=== PATIENT | male | born 1950 | race Caucasian/White ===

== ENCOUNTER 2017-02-07 13:37 | Inpatient (IN) ==
[2017-02-07 14:22] LABS: Basophils % 0.3 % (0.0-0.8); Eosinophils # 0.2 10*3/uL (0.0-0.87); Eosinophils % 1.7 % (0.00-10.9); Hematocrit 47.5 VOL% (42.0-52.0); Hemoglobin 16.6 GM/DL (14.0-18.0); Immature Granulocytes % 0.4 %; Immature Granulocytes Absolute 0.05 #; Lymphocytes # 2.4 10*3/uL (1.4-4.0); Lymphocytes % 17.2 % (21.2-54.2); Mean Corpuscular HGB Conc 34.9 GM/DL (32-36); Mean Corpuscular Hemoglobin 31 PG (27-34); Mean Corpuscular Volume 87.8 FL (87-102); Mean Platelet Volume 10.5 FL (9.6-12.0); Monocytes # 1.6 10*3/uL (0.11-0.8); Monocytes % 11.5 % (1.7-12.7); Neutrophils # 9.5 10*3/uL (1.4-7.4); Neutrophils % 68.9 % (38.7-73.9); Platelet Count 277 T/CUMM (130-400); Red Blood Count 5.41 MC/CUMM (3.8-5.5); Red Cell Distribution Width 12.5 % (9.3-17.3); White Blood Count 13.8 T/CUMM (4-12)
[2017-02-07 14:27] LABS: Apearance,Urine CLEAR (Clear); Bilirubin,Urine Negative (Negative); Blood, Urine Negative (Negative); Glucose,Urine (UA) Negative (Negative); Ketones,Urine Negative (Negative); Nitrite,Urine Negative (Negative); Protein,Urine Negative; RBC,Urine <1 /HPF (0-4); Squamous Epithelial Cell,Urine Occasional /HPF (0-10); Urine Color Yellow (Yellow); Urine Specific Gravity 1.008 (1.001-1.035); Urine Urobilinogen < 2.0 EU/DL (0.2-1.0); WBC,Urine 1 /HPF (0-6)
--- NOTE | 2017-02-07 14:43 | XRay Report ---
XR abdomen 2V Indication: Lower abdominal pain. Comparison: None. Technique: Flat and erect images of the abdomen were performed. Findings: Lung bases are clear. No organomegaly suggested. The bowel gas pattern demonstrates no significant abnormality. Bony structures as well as soft tissues demonstrate no evidence of significant pathology. Surgical absence of the gallbladder is demonstrated. Multilevel lumbar fusion is demonstrated laminectomy defects are present at L4, possibly L5. Hollow rounded density projects in the mid left abdomen under the left kidney and may reflect gonadal vein phlebolith. Impression: 1. No active process is suggested within the abdomen or pelvis. 02/07/2017 2:38 PM PROCEDURE INTERPRETED AT [facility] DEPARTMENT OF RADIOLOGY Final Report Signed by: Dr. Shade Stephens
[2017-02-07 14:45] LABS: Albumin 3.9 G/DL (3.4-5.0); Bilirubin,Total 0.8 MG/DL (0.2-1.0); Calcium 9.4 MG/DL (8.5-10.1); Potassium 4.7 MMOL/L (3.5-5.1); Total Protein 7.6 G/DL (6.4-8.3)
[2017-02-07] MEDS ORDERED: KETOROLAC 30 MG/1 ML VIAL IV STA (15:00)
[2017-02-07] MEDS ORDERED: SODIUM CHLORIDE 0.9% 1,000 ML IV STA (15:00)
[2017-02-07] MEDS ORDERED: KETOROLAC 30 MG/1 ML VIAL ONE (15:18)
--- NOTE | 2017-02-07 15:37 | Emergency Department Note ---
IEkaterina Brittany, am scribing for, and in the presence of, Marce Gillespie DO 15: 12. IJose Miguel Debra, DO, personally performed the services described in this documentation, ascribed by Marlene Tobar in my presence, and it is both accurate and complete [id number] . Arrival - Arrival Chief Complaint: Abdominal / Flank Pain Stated Complaint: severe pain on left side ED Nursing Triage Note: PATIENT TO TRIAGE WITH C/O PAIN TO LOWER LEFT ABD. PATIENT STATES HIS LAST BM WAS YESTERDAY AND IT WAS NOT A LOT. HE STATES HE HAS BEEN DOING A LOT OF WORKING OUTSIDE. Mode of Arrival: Ambulatory Limitations: No Limitations Source: Patient Time Seen by Provider: 02/07/17 14:42 - History of Present Illness HPI Narrative: This is a 66 y/o white male,who presents to the ED with c/o abdominal pain which started yesterday. He localizes the pain to the LLQ and moves down into the left groin area. He reports mild nausea but denies any vomiting. He states last night he had a fever. He states he was working outside a lot yesterday but he states he drinks sweet tea, water and Gatorade. Pt has no other complaints/ pain in the ED at this time. Pt has a PMhx of HTN and diverticulitis. Pt denies a surgical hx. Pt has a family medical Hx of cancer, heart disease, stroke, and HTN. Pt denies a social Hx. Onset (ago): day(s) (Started yesterday) Consistency: constant Severity: moderate Allergies/Adverse Reactions: Allergies Allergy/AdvReac Type Severity Reaction Status Date / Time metronidazole [From Flagyl] Allergy ITCHING Verified 02/07/17 13:47 sulfamethoxazole Allergy HIVES Verified 02/07/17 13:47 [From Bactrim] trimethoprim [From Bactrim] Allergy HIVES Verified 02/07/17 13:47 Home Medications: Home Medications Medication Instructions Recorded Confirmed Type Aspirin EC Tab 81 mg PO QAM 02/07/17 02/07/17 History Levothyroxine Sodium 125 mcg PO QAM 02/07/17 02/07/17 History Lisinopril [Lisinopril] 40 mg PO QAM 02/07/17 02/07/17 History Meloxicam [Meloxicam] 7.5 mg PO QAM 02/07/17 02/07/17 History [place]-3/Dha/Epa/Fish Oil [Fish Oil 1 each PO QAM 02/07/17 02/07/17 History 1,000 mg Softgel] Review of System - Review of System 12 point system: reviewed and no additional remarkable complaints except as stated - Review of System Constitutional: Present: fever Gastrointestinal: Present: abdominal pain, nausea. Absent: vomiting Medical,Surgical,& Family Hx - Medical History Cardio: History of: Hypertension Gastrointestinal: History of: Diverticulitis/ Diverticulosis - Family History Family History: Reports;: Family Cancer, Family Heart Disease, Family Hypertension, Family Stroke - Social History Smoking Status: Never smoker Frequency of Alcohol Use: None Type of Drug Use: None Exam Vital Signs: Vital Signs Temperature 97.7 F 02/07/17 14:35 Pulse Rate 81 02/07/17 15:50 Respiratory Rate 16 02/07/17 15:50 Blood Pressure 153/93 02/07/17 15:50 O2 Sat by Pulse Oximetry 100 02/07/17 15:50 - General General appearance: alert, in no apparent distress - Head Head exam: Present: atraumatic, normocephalic, normal inspection - Eye Eye exam: Present: normal appearance, PERRL, EOMI. Absent: scleral icterus, conjunctival injection, nystagmus, miosis, mydriasis, periorbital swelling, periorbital tenderness - ENT ENT exam: Present: normal exam, normal oropharynx, mucous membranes moist, TM's normal bilaterally, normal external ear exam - Neck Neck exam: Present: normal inspection, full ROM, trachea midline. Absent: tenderness, meningismus, lymphadenopathy, thyromegaly - Chest Chest inspection: Present: normal inspection, symmetric chest wall rise. Absent : tenderness, rash, abscess - Respiratory Respiratory exam: Present: normal lung sounds bilaterally. Absent: prolonged expiratory phase, rales, respiratory distress, rhonchi, stridor, wheezes - Cardiovascular Cardiovascular exam: Present: regular rate, normal rhythm, normal heart sounds. Absent: murmur, rubs, gallop, clicks, JVD - Abdominal Exam Abdominal exam: Present: soft, tenderness (LLQ tenderness), normal bowel sounds. Absent: distention, guarding, rebound, rigidity - Rectal Exam Rectal exam: Present: deferred - Extremities Exam Extremities exam: Present: normal inspection, full ROM, normal capillary refill. Absent: tenderness, pedal edema, joint swelling, calf tenderness - Back Exam Back exam: Present: normal inspection, full ROM. Absent: tenderness, muscle spasm, rashes - Neurological Exam Neurological exam: Present: alert, oriented X3, CN II-XII intact. Absent: motor sensory deficit - Psychiatric Psychiatric exam: Present: normal affect, normal mood, manic. Absent: depressed , agitated, anxious, flat affect - Skin Skin exam: Present: warm, dry, intact, normal color. Absent: rash, cyanosis, diaphoresis, erythema, pallor, mottled Results - Labs CBC & BMP: 02/07/17 14:06 02/07/17 14:06 Lab Results: I have reviewed the patients labs Labs: Laboratory Tests 02/07/17 02/07/17 02/07/17 14:06 14:06 14:06 WBC 13.8 H RBC 5.41 Hgb 16.6 Hct 47.5 MCV 87.8 MCH 31 MCHC 34.9 RDW 12.5 Plt Count 277 MPV 10.5 Neut % (Auto) 68.9 Lymph % (Auto) 17.2 L [place] % (Auto) 11.5 Eos % (Auto) 1.7 Baso % (Auto) 0.3 Neut # (Auto) 9.5 H Lymph # (Auto) 2.4 [place] # (Auto) 1.6 H Eos # (Auto) 0.2 Baso # (Auto) 0.0 Immature Gran % 0.4 Nucleated RBC % 0.0 Immature Gran # 0.05 Nucleated RBCs # 0.00 Immature Plt Fraction 0.0 Sodium 136 Potassium 4.7 Chloride 101 Carbon Dioxide 30 Anion Gap 9.7 BUN 17 Creatinine 1.10 GFR Calculation 82 BUN/Creatinine Ratio 15.00 Glucose 100 Calculated Osmolality 273.0 Calcium 9.4 Total Bilirubin 0.80 AST 16 ALT 34 Alkaline Phosphatase 70 Total Protein 7.6 Albumin 3.9 Globulin 3.7 H Albumin/Globulin Ratio 1.0 L Urine Color Yellow Urine Appearance Clear Urine pH 5.0 Ur Specific [place] 1.008 Urine Protein Negative Urine Glucose (UA) Negative Urine Ketones Negative Urine Blood Negative Urine Nitrate Negative Urine Bilirubin Negative Urine Urobilinogen < 2.0 H Urine Leukocytes Negative Urine RBC <1 Urine WBC 1 Ur Squamous Epith Cells Occasional Ur Culture Indicated? Not indicated - Diagnostic Findings Procedure: Abdominal x-ray: report reviewed by me (Nothing acute. ) Disposition Clinical Impression: Diverticulitis Case discussed with: patient, patient's family Disposition: Still a Patient Condition: Stable Time of Disposition: 16:13
[2017-02-07] MEDS ORDERED: MEROPENEM 1,000 MG in SODIUM CHLORIDE 0.9% 100 ML IV STA (16:05)
[2017-02-07] MEDS ORDERED: HYDROmorphone 2 MG/1 ML VIAL IV STA (16:06)
[2017-02-07] MEDS ORDERED: ONDANSETRON 4 MG/2 ML VIAL IV STA (16:06)
[2017-02-07] MEDS ORDERED: MEROPENEM 1,000 MG VIAL IV ONE (16:09)
[2017-02-07] MEDS ORDERED: ONDANSETRON 4 MG/2 ML VIAL ONE (16:10)
[2017-02-07] MEDS ORDERED: HYDROmorphone 2 MG/1 ML VIAL ONE (16:10)
--- NOTE | 2017-02-07 16:11 | CT Report ---
CT abdomen pelvis w con Indication: Left-sided abdominal pain. History of diverticulitis. Comparison: None. Technique: CT of the abdomen and pelvis was performed following administration of intravenous contrast. The CT examination was performed using one or more of the following dose reduction techniques: Automatic exposure control, adjustment of the mA and kV according to patient size, or iterative reconstruction techniques. Findings: Lower chest: No acute findings are noted within the lower chest. Dependent atelectatic changes are present bilaterally. Moderately dense coronary artery calcifications are present. Liver: Liver demonstrates a subcentimeter hypodense lesion within the lateral segment left hepatic lobe favored to represent small cyst. A larger more posterior hypodense lesion within the lateral segment of the left hepatic lobe image #41 measures approximately 2 cm in greatest dimension and additionally is favored to represent cyst. Liver is otherwise unremarkable. Gallbladder: Gallbladder surgically absent. Spleen: Spleen demonstrates no significant abnormality. Pancreas: Pancreas demonstrates no significant abnormality. Adrenal glands: The adrenal glands demonstrate no significant abnormalities. Kidneys: Posterior cortical cyst right kidney image 68 measures up to 4.4 cm greatest dimension. The kidneys otherwise are unremarkable. Aorta: The aorta demonstrates no acute findings. Inferior vena cava: Inferior vena cava is normal in appearance. Lymph nodes: No adenopathy is noted within the abdomen or pelvis. Stomach and bowel: Stomach, duodenum, and small bowel are unremarkable. The appendix is not clearly identified and may be surgically absent. Multiple diverticula are demonstrated along the descending and sigmoid colon. The proximal sigmoid colon demonstrates a short segment in which there are inflammatory changes manifest by periserosal fat stranding and some wall thickening of the large bowel. This lies proximal to the surgical anastomosis within the mid sigmoid colon. Large bowel is otherwise unremarkable. Intrapelvic contents: No acute findings are noted within the pelvis. Osseous structures: Prior lumbar fusion and bilateral laminectomy defects are noted at L3, L4, L5. Soft tissues and musculature: Soft tissues and musculature of the body wall demonstrate no acute findings. Impression: 1. Findings compatible with acute sigmoid diverticulitis. No discrete evidence of perforation or intra-abdominal/intrapelvic abscess appears to be associated. 2. Nonacute findings are present as detailed above. 02/07/2017 4:04 PM PROCEDURE INTERPRETED AT [facility] DEPARTMENT OF RADIOLOGY Final Report Signed by: Dr. Shade Stephens
[2017-02-07] MEDS ORDERED: MAGNESIUM SULF RIDER 2 GM in PREMIX 1 EACH IV PRN (16:27)
[2017-02-07] MEDS ORDERED: ONDANSETRON 4 MG/2 ML VIAL IV PRN (16:27)
[2017-02-07] MEDS ORDERED: MAGNESIUM SULF RIDER 4 GM in PREMIX 1 EACH IV PRN (16:27)
[2017-02-07] MEDS ORDERED: POTASSIUM CHLORIDE RIDER 10 MEQ in PREMIX 1 EACH IV PRN (16:27)
[2017-02-07] MEDS ORDERED: CIPROFLOXACIN INJ 400 MG in PREMIX 1 EACH IV SCH (16:30)
--- NOTE | 2017-02-07 16:38 | Hospitalist History & Physical ---
Assessment and Plan (1) Diverticulitis Status: Acute Assessment and plan: CT abdomen and pelvis findings reported acute sigmoid diverticulitis however, no evidence of perforation or intra-abdominal or intrapelvic abscesses are noted. We will start empiric antibiotic coverage, gently rehydrate, promote bowel rest, start protein pump inhibitors, and pain management. We will consult gastroenterology to evaluate and assist during the clinical encounter. Current Visit: Yes Qualifiers: Diverticulitis site: unspecified part of intestinal tract Diverticulitis complication: without perforation or abscess (2) Hypertension Status: Acute Assessment and plan: Home medications have been reviewed and restarted. We will monitor blood pressure closely Current Visit: Yes History of Present Illness Chief complaint: Left-sided abdominal and flank pain History of present illness: This is a pleasant 66-year-old male that presented to the ED at [facility] this afternoon for the evaluation of left-sided abdominal and flank pain. The patient has a medical history significant for hypertension, hypothyroidism, arthritis, and diverticulitis. The patient reported no significant surgical history at the time of ED encounter. The patient reports the onset of symptoms on yesterday. He reported that he had been working a lot outside on yesterday however he remained hydrated. In addition, the patient reported that he had fever last night and that the pain is primarily located in the left lower quadrant however it extends down into the left groin. The patient denied any nausea, vomiting, hematochezia, or melena at the time of ED presentation. He reported that the pain was very severe on last night however it improved slightly today. It became worrisome prompting him to present to the ED for further evaluation. The patient was assessed at the time of ED presentation. The patient was noted to be mildly hypertensive with the blood pressure noted at 153/93. Labs were obtained; complete blood count reported white blood cell count 13.8, hemoglobin 16.6, hematocrit 47.5, and platelet count 277. Comprehensive metabolic profile reported sodium at 136, potassium 4.6, chloride 101, carbon dioxide 30, BUN 17, creatinine 1.10, glucose 100, calcium 9.4, AST 16, ALT 34, albumin 3.9. Urinalysis was essentially unremarkable. Abdominal x-ray was unremarkable for any acute intra-abdominal processes. CT abdomen pelvis reported findings compatible with acute sigmoid diverticulitis however, no discrete evidence of perforation or intra-abdominal/intrapelvic abscess appears to be associated. After brief discussion with both Dr. Jose Miguel Sandoval, the patient will be admitted to the hospitalist services for continuation of care. A gastroenterology consultation has been requested to evaluate and assist during the clinical encounter. Home medications have been reviewed and reconciled. CODE STATUS discussed; patient is a FULL CODE. Home Medications Medication Instructions Recorded Confirmed Type Aspirin EC Tab 81 mg PO QAM 02/07/17 02/07/17 History Levothyroxine Sodium 125 mcg PO QAM 02/07/17 02/07/17 History Lisinopril [Lisinopril] 40 mg PO QAM 02/07/17 02/07/17 History Meloxicam [Meloxicam] 7.5 mg PO QAM 02/07/17 02/07/17 History [place]-3/Dha/Epa/Fish Oil [Fish Oil 1 each PO QAM 02/07/17 02/07/17 History 1,000 mg Softgel] Allergies Allergy/AdvReac Type Severity Reaction Status Date / Time metronidazole [From Flagyl] Allergy ITCHING Verified 02/07/17 13:47 sulfamethoxazole Allergy HIVES Verified 02/07/17 13:47 [From Bactrim] trimethoprim [From Bactrim] Allergy HIVES Verified 02/07/17 13:47 Medical,Surgical,& Family Hx - Medical History Cardio: History of: Hypertension Gastrointestinal: History of: Diverticulitis/ Diverticulosis - Family History Family History: Reports;: Family Cancer, Family Heart Disease, Family Hypertension, Family Stroke - Social History Smoking Status: Never smoker Frequency of Alcohol Use: None Type of Drug Use: None 12 point system: reviewed and no additional remarkable complaints except as stated Exam - Constitutional Vitals: Period Temp Pulse Resp BP Sys/Graf Pulse Ox Last 24 Hr 97.7 F-97.7 F 81-100 16-18 137-162/86-112 95-100 General appearance: normal weight, no acute distress - Head Head exam: Present: normal inspection, normocephalic, atraumatic - Eye Eye exam: Present: EOMI. Absent: conjunctival injection Pupils: Present: ALEX, normal accommodation - ENT ENT exam: Present: normal exam, normal external ear exam, normal oropharynx - Neck Neck exam: Present: normal inspection. Absent: lymphadenopathy, meningismus, thyromegaly - Respiratory Respiratory exam: Present: clear to auscultation bilaterally. Absent: rales, rhonchi, stridor, wheezes - Cardiovascular Cardiovascular exam: Present: regular rate and rhythm. Absent: carotid bruit, diastolic murmur, gallop, JVD, rubs, systolic murmur - GI/Abdominal GI/Abdominal exam: Present: normal bowel sounds, firm, tenderness (Left upper quadrant). Absent: distended, guarding - Extremities Exam Extremities exam: Present: normal inspection, normal capillary refill, full ROM. Absent: edema - Back Exam Back exam: Present: normal inspection - Neurological Exam Neurological exam: Present: alert, oriented X3, CN II-XII intact - Psychiatric Psychiatric exam: Present: normal affect, normal mood - Skin Skin exam: Present: normal color, warm, dry Results - Labs CBC & BMP: 02/07/17 14:06 02/07/17 14:06 Lab Results: I have reviewed the past 24 hour labs
[2017-02-07] MEDS ORDERED: metroNIDAZOLE INJ 500 MG in PREMIX 1 EACH IV SCH (17:00)
[2017-02-07] MEDS: SODIUM CHLORIDE 0.9% 1,000 ML IV SCH (17:26)
[2017-02-07] MEDS: PIPERACILLIN/TAZOBACTAM 3,375 MG in SODIUM CHLORIDE 0.9% 100 ML IV SCH (17:26)
[2017-02-07] MEDS ORDERED: MELATONIN 3 MG TABLET PO PRN (19:44)
[2017-02-08] MEDS: PIPERACILLIN/TAZOBACTAM 3,375 MG in SODIUM CHLORIDE 0.9% 100 ML IV SCH ×3 (01:26→18:16)
[2017-02-08] MEDS: SODIUM CHLORIDE 0.9% 1,000 ML IV SCH ×3 (01:27→17:55)
--- NOTE | 2017-02-08 07:01 | Gastrointestinal Consult Note ---
History of Present Illness Chief complaint: Patient is here with an episode of diverticulitis, leukocytosis History of present illness: Mr. Aleman is a 66 year old male Home Medications Medication Instructions Recorded Confirmed Type Aspirin EC Tab 81 mg PO QAM 02/07/17 02/07/17 History Levothyroxine Sodium 125 mcg PO QAM 02/07/17 02/07/17 History Lisinopril [Lisinopril] 40 mg PO QAM 02/07/17 02/07/17 History Meloxicam [Meloxicam] 7.5 mg PO QAM 02/07/17 02/07/17 History [place]-3/Dha/Epa/Fish Oil [Fish Oil 1 each PO QAM 02/07/17 02/07/17 History 1,000 mg Softgel] Allergies Allergy/AdvReac Type Severity Reaction Status Date / Time metronidazole [From Flagyl] Allergy ITCHING Verified 02/07/17 18:01 sulfamethoxazole Allergy HIVES Verified 02/07/17 18:01 [From Bactrim] trimethoprim [From Bactrim] Allergy HIVES Verified 02/07/17 18:01 Medical,Surgical,& Family Hx - Medical History Cardio: History of: Hypertension Gastrointestinal: History of: Diverticulitis/ Diverticulosis - Surgical History Abdominal Surgeries: Surgical HX of: Appendectomy (at 13 yrs old) - Family History Family History: Reports;: Family Cancer (mom and dad), Family Heart Disease ( mom and dad), Family Hypertension, Family Stroke (mom) - Social History Smoking Status: Never smoker Frequency of Alcohol Use: None Type of Drug Use: None Exam - Constitutional Vitals: Period Temp Pulse Resp BP Sys/Graf Pulse Ox Last 24 Hr 97 F-98.3 F 61-100 15-18 115-162/60-112 93-100 Results - Labs CBC & BMP: 02/07/17 14:06 02/07/17 14:06
[2017-02-08 08:15] LABS: Basophils # 0.1 10*3/uL (0.0-0.2); Basophils % 0.6 % (0.0-0.8); Eosinophils # 0.3 10*3/uL (0.0-0.87); Eosinophils % 3.5 % (0.00-10.9); Hematocrit 41.3 VOL% (42.0-52.0); Hemoglobin 14.1 GM/DL (14.0-18.0); Immature Granulocytes % 0.3 %; Immature Granulocytes Absolute 0.03 #; Lymphocytes # 2.1 10*3/uL (1.4-4.0); Lymphocytes % 23.9 % (21.2-54.2); Mean Corpuscular HGB Conc 34.1 GM/DL (32-36); Mean Corpuscular Hemoglobin 30 PG (27-34); Mean Corpuscular Volume 88.6 FL (87-102); Mean Platelet Volume 10.5 FL (9.6-12.0); Monocytes # 0.8 10*3/uL (0.11-0.8); Monocytes % 9.4 % (1.7-12.7); Neutrophils # 5.6 10*3/uL (1.4-7.4); Neutrophils % 62.3 % (38.7-73.9); Platelet Count 241 T/CUMM (130-400); Red Blood Count 4.66 MC/CUMM (3.8-5.5); Red Cell Distribution Width 12.7 % (9.3-17.3); White Blood Count 8.9 T/CUMM (4-12)
[2017-02-08] MEDS: LEVOTHYROXINE 125 MCG TABLET PO SCH (08:24)
[2017-02-08] MEDS: LISINOPRIL 20 MG TABLET PO SCH (08:24)
[2017-02-08] MEDS: PANTOPRAZOLE 40 MG VIAL IV SCH (08:25)
[2017-02-08] MEDS: HYDROmorphone 2 MG/1 ML VIAL IV PRN ×2 (08:25→18:23)
[2017-02-08 08:59] LABS: Bilirubin,Total 0.8 MG/DL (0.2-1.0); Calcium 7.9 MG/DL (8.5-10.1); Magnesium 2.5 MG/DL (1.8-2.4); Osmolality,Calculated 277.5 MOS/KG (273-304); Potassium 4.9 MMOL/L (3.5-5.1); Total Protein 5.9 G/DL (6.4-8.3)
--- NOTE | 2017-02-08 10:11 | Hospitalist Progress Note ---
Assessment and Plan (1) Diverticulitis Status: Acute Assessment and plan: 1)diverticulitis- on ZOsyn, continue. continue clears today and consider advancing as his appetite improves. Dr Harley ot see today. 2)HTN- controlled Current Visit: Yes Qualifiers: Diverticulitis site: unspecified part of intestinal tract Diverticulitis complication: without perforation or abscess (2) Hypertension Status: Acute Current Visit: Yes Hospitalist: Subjective Interval history: Mr Aleman is feeling better except for the LLQ pain that radiates to his groin. His nausea resolved. He is tolerating clears. He has had diverticulitis in the past, with surgery to remove 12 in of colon in 2009 for recurrent diverticulitis and an isolated episode of diverticulitis in 2013. He had cscope in 2013 and was told he would not need it again for 10 years. He has not established with doctors in [place] since his move from [place]. Exam - Constitutional Vitals: Period Temp Pulse Resp BP Sys/Graf Pulse Ox Last 24 Hr 97 F-98.3 F 61-100 15-18 115-162/60-112 93-100 General appearance: no acute distress, over weight - Head Head exam: Present: normocephalic, atraumatic - Eye Eye exam: Present: EOMI. Absent: scleral icterus - Respiratory Respiratory exam: Present: clear to auscultation bilaterally - Cardiovascular Cardiovascular exam: Present: regular rate and rhythm - GI/Abdominal GI/Abdominal exam: Present: normal bowel sounds, tenderness (LLQ no mass or guarding or rebound, but very tender), soft - Extremities Exam Extremities exam: Absent: edema - Neurological Exam Neurological exam: Present: alert, oriented X3 - Psychiatric Psychiatric exam: Present: normal affect, normal mood - Skin Skin exam: Present: warm, dry. Absent: rash Results - Labs CBC & BMP: 02/08/17 07:53 02/08/17 07:53 Lab Results: I have reviewed the past 24 hour labs
--- NOTE | 2017-02-08 16:23 | Gastrointestinal Consult Note ---
Assessment and Plan (1) Sigmoid diverticulitis Status: Acute Assessment and plan: This patient has an episode of diverticulitis discovered on CT scanning. He is a history of colon resection due to this condition in the past. He states that approximately 14 inches of his colon removed previously. I am surprised he would not do a left hemicolectomy given his prior history of episodes. Prior evaluation of the colon has taken place 2 and apparently, I believe, hyperplastic polyps removed that carry very little malignant risk. He was told that he does not need repeat colonoscopy for 10 years. I would like to get a copy of these records and verify these findings. Current Visit: Yes (2) Personal history of colonic polyps Status: Acute Assessment and plan: As mentioned above the patient has had a prior colonoscopy 2 but her last colonoscopy was negative and he was told to return again in 10 years. I would like to get the old records from Dr. Suzanna Lai, in [facility]. Hopefully these will be available when I have to see him as an outpatient in the future. Current Visit: Yes (3) History of colon resection Status: Acute Assessment and plan: The patient did have a segment of colon removed because of recurrent diverticulitis. We need to keep an eye on him to see if this is going to be a trend that continues. Current Visit: Yes (4) Abnormal CT scan, pelvis Status: Acute Current Visit: Yes (5) Diverticulitis Status: Acute Assessment and plan: This patient has an elevated white blood cell count and clinical presentation similar to what has been seen in the past. Antibiotics have been started. The patient is being observed for improvement in his white blood cell count and clinical examination prior to being switched over to oral antibiotics and possibly sent home. Given the fact that Zosyn is being used to control symptoms would suggest use of Augmentin 875 mg twice daily, given his current improvement he might be ready to be discharged tomorrow. Current Visit: Yes Qualifiers: Diverticulitis site: unspecified part of intestinal tract Diverticulitis complication: without perforation or abscess History of Present Illness History of present illness: Mr. Aleman is a 66 year old male who has a history of previous colonoscopy done 7 years ago in 2009 in [facility] by a jewelry maker named Suzanna Sherwood MD--she discovered polyps at that time but also diverticulosis. Patient has had recurrent episodes of diverticulitis 1 of which required resection of his sigmoid 14 inches in 2009. The patient subsequently had another colonoscopy done in 2013 which did not demonstrate any further polyps, he was told at that point that he did not need to repeat the colonoscopy for [address] Sherwood (next in 2023). The patient is locating now to the [place] region and it started to develop another episode of diverticulitis starting on 02/06/17 at about 5 PM in the evening.--the pain was initially a 7 out of 10 in intensity , this is dropped back to about a 3 out of 10 by the patient does not try to move too much. There was fevers but no chills the patient is having nausea. He remembers eating some tomato seeds but does not recall any popcorn seeds or nuts of other types. He usually tries to get some fiber in his diet. He was admitted to the hospitalist yesterday and has been placed on Zosyn. White blood cell count has improved from initial 13.8 down to 8.9 at this point. He is a little bit hungry and would like a low residue diet. He was having some diarrhea initially but this has slacked off. The patient does feel constipation in addition during these episodes and had tried an enema at home. He is taking a few Dulcolax to try and relieve the sensation in his left lower abdomen as well, unsuccessfully. The patient works for [employer]. Home Medications Medication Instructions Recorded Confirmed Type Aspirin EC Tab 81 mg PO QAM 02/07/17 02/07/17 History Levothyroxine Sodium 125 mcg PO QAM 02/07/17 02/07/17 History Lisinopril [Lisinopril] 40 mg PO QAM 02/07/17 02/07/17 History Meloxicam [Meloxicam] 7.5 mg PO QAM 02/07/17 02/07/17 History [place]-3/Dha/Epa/Fish Oil [Fish Oil 1 each PO QAM 02/07/17 02/07/17 History 1,000 mg Softgel] Allergies Allergy/AdvReac Type Severity Reaction Status Date / Time metronidazole [From Flagyl] Allergy ITCHING Verified 02/07/17 18:01 sulfamethoxazole Allergy HIVES Verified 02/07/17 18:01 [From Bactrim] trimethoprim [From Bactrim] Allergy HIVES Verified 02/07/17 18:01 Medical,Surgical,& Family Hx - Medical History Cardio: History of: Hypertension Gastrointestinal: History of: Diverticulitis/ Diverticulosis - Surgical History Abdominal Surgeries: Surgical HX of: Appendectomy (at 13 yrs old) - Family History Family History: Reports;: Family Cancer (mom and dad), Family Heart Disease ( mom and dad), Family Hypertension, Family Stroke (mom) - Social History Smoking Status: Never smoker Frequency of Alcohol Use: None Type of Drug Use: None Review of systems: Constitutional: Denies fever, chills, and vomiting, he is however positive for nausea Eyes: Denies dry eyes, and scleral icterus HENT: Denies headaches Cardiovascular: Denies acute chest pain and claudication Respiratory: Denies shortness of breath, wheezing, and difficulty breathing, denies cough Gastrointestinal: As noted in the HPI Genitourinary: Denies dysuria and hematuria Neurologic: Denies vision loss, and loss of sensation Musculoskeletal: Denies joint swelling, joint stiffness, and muscular weakness Psychiatric: Denies depression and randy symptoms Heme-Lymph: Denies easy bruising, lymph node enlargement or tenderness, night sweats, excessive bleeding Allergies-immunologic: Denies pruritus and rhinorrhea Exam - Constitutional Vitals: Period Temp Pulse Resp BP Sys/Graf Pulse Ox Last 24 Hr 97 F-98.3 F 55-82 15-18 115-146/60-92 93-100 Exam: Constitutional: Well-developed, well-nourished, alert, and in no acute distress Head and face: Head: Normocephalic atraumatic Eyes: Conjunctiva without injection, no gross scleral icterus, pupils equal and round bilaterally Ears: Intact to conversation in both ears Nose: External appearance is normal, nares patent Mouth: Oral mucous membranes moist without erythema dentition noted to be without erosion Neck: Normal appearance, no masses or tenderness, trachea midline Thyroid: Gland midline and appropriate size for age Respiratory: Normal respiratory effort, clear to auscultation without wheezes, rhonchi or rales Cardiovascular: Regular rate and rhythm, normal S1, S2, the exam is without rubs, murmurs or gallops. Gastrointestinal: Moderately tender in the left lower quadrant to deep palpation, normal active bowel sounds, tone normal without rigidity or guarding , no masses present, no hepatomegaly, no spleen tip felt. No rectal exam obtained. Lymphatic: Neck without adenopathy, axilla without lymphadenopathy present Musculoskeletal: Right and left lower extremities without evidence of edema Skin and subcutaneous tissue: No rashes or ulcerations noted, normal skin turgor, digits and nails without clubbing/cyanosis/deformities. Neurologic: The patient is grossly oriented to person place and time, cranial nerves show tongue movements are normal with normal tongue extrusion midline, light touch sensation is intact. Psychiatric: No hallucinations or delusions are present, does not appear depressed Results - Labs CBC & BMP: 02/08/17 07:53 02/08/17 07:53
[2017-02-09] MEDS: SODIUM CHLORIDE 0.9% 1,000 ML IV SCH (01:29)
[2017-02-09] MEDS: PIPERACILLIN/TAZOBACTAM 3,375 MG in SODIUM CHLORIDE 0.9% 100 ML IV SCH (01:30)
--- NOTE | 2017-02-09 06:54 | Gastrointestinal Progress Note ---
Assessment and Plan (1) Sigmoid diverticulitis Status: Acute Assessment and plan: This patient has an episode of diverticulitis discovered on CT scanning. He is a history of colon resection due to this condition in the past. He states that approximately 14 inches of his colon removed previously. I am surprised he did not get a left hemicolectomy given his prior history of episodes. Prior evaluation of the colon has taken place 2 and apparently, I believe, hyperplastic polyps removed that carry very little malignant risk. He was told that he does not need repeat colonoscopy for 10 years. I would like to get a copy of these records and verify these findings. 02/09/17--The patient is doing well with pain down to a 3 out of 10 in intensity, anticipate that his white blood cell count today further will come down. In anticipation of this I am going to switch him over from Zosyn to Augmentin 875 mg p.o. twice daily. Would suggest watching him for a day on this medication but he could certainly be discharged this afternoon if he is doing well. He understands a low residue diet and what foods to avoid. It is my understanding that he does not need another colonoscopy for at least until 2019 given his prior history of polyps we are still trying to get old records from his previous client account specialist in [place]. Current Visit: Yes (2) Personal history of colonic polyps Status: Acute Assessment and plan: As mentioned above the patient has had a prior colonoscopy 2 but her last colonoscopy was negative and he was told to return again in 10 years. I would like to get the old records from Dr. Suzanna Lai, in [facility]. Hopefully these will be available when I have to see him as an outpatient in the future. 02/09/17--Await results from [place]. Discharge from hospital today or tomorrow as you see fit. Current Visit: Yes (3) History of colon resection Status: Acute Assessment and plan: The patient did have a segment of colon removed because of recurrent diverticulitis. We need to keep an eye on him to see if this is going to be a trend that continues. 02/09/17--Segmental colectomy done in the sigmoid previously. May need repeated surgery at some point if he continues to have episodes. Current Visit: Yes (4) Abnormal CT scan, pelvis Status: Acute Current Visit: Yes Gastroenterology - PN: Subj Interval history: Feels better, pain now down to a 3 out of 10 in intensity still somewhat tender when pressed upon. He is tolerating a low residue diet well. I am going to try stopping his fluids, and switch him over to oral medications. Exam (Progress Note) - Constitutional Vitals: Period Temp Pulse Resp BP Sys/Graf Pulse Ox Last 24 Hr 97.1 F-98.2 F 55-82 18-18 125-147/72-83 95-97 General appearance: no acute distress - Head Head exam: Present: normocephalic - Eye Eye exam: Present: EOMI - Respiratory Respiratory exam: Present: clear to auscultation bilaterally - GI/Abdominal GI/Abdominal exam: Present: normal bowel sounds, tenderness (Left lower quadrant tenderness to moderate palpation), soft. Absent: rebound - Extremities Exam Extremities exam: Present: normal inspection - Back Exam Back exam: Present: normal inspection - Neurological Exam Neurological exam: Present: alert, oriented X3, CN II-XII intact - Psychiatric Psychiatric exam: Present: normal affect, normal mood - Skin Skin exam: Present: warm Results - Labs CBC & BMP: 02/08/17 07:53 02/08/17 07:53
[2017-02-09] MEDS ORDERED: AMOXICILLIN/CLAV 875 MG TABLET PO SCH (07:00)
[2017-02-09 07:26] LABS: Calcium 8.3 MG/DL (8.5-10.1); Osmolality,Calculated 283.1 MOS/KG (273-304)
[2017-02-09] MEDS: PANTOPRAZOLE 40 MG VIAL IV SCH (08:05)
[2017-02-09] MEDS: LEVOTHYROXINE 125 MCG TABLET PO SCH (08:06)
[2017-02-09] MEDS: LISINOPRIL 20 MG TABLET PO SCH (08:06)
--- NOTE | 2017-02-09 09:35 | Discharge Summary ---
Hospital Course - Hospital Course Hospital Course: Mr Aleman presented with nausea and abdominal pain and had sigmoid diverticulitis. His last cscope was a few years ago and he was told he did not need another for 10 years. He has had colon resection in the past for recurrent diverticulitis. He is feeling good, tolerating regular diet and oral antibiotics. He will be discharged today to [facility] with Dr Harley and [facility] with DR Ely Abdul for primary care. I discussed the discharge plans with DR Harley to coordinate care. He will complete 10 days of oral augmentin. - Time spent with patient Time with patient DS: Greater than 30 minutes (exam, coordination of care, documentation, medicine reconciliation) Diagnosis - Discharge Diagnosis (1) Diverticulitis Status: Resolved (2) Hypertension Status: Chronic Specialty Discharge - Follow Up or Referrals Follow up with: Ely Abdul DO [Physician] - 02/17/17 1:30 pm (before Feb 18 or after mar 11 new patient, diverticulitis) Discharge Plan - Discharge Data Disposition: Disch To Home/Self Care Condition at Discharge: Stable Discharge Diet: advance to your usual diet (per Dr Newsome's instructions) Activity: resume usual activities as tolerated - Discharge Medications New Amoxicillin/Clav Tab [Augmentin Tab] 875 mg PO Q12H #20 tablet Continue Levothyroxine Sodium 125 mcg PO QAM Aspirin EC Tab 81 mg PO QAM Meloxicam 7.5 mg PO QAM [place]-3/Dha/Epa/Fish Oil [Fish Oil 1,000 mg Softgel] 1 each PO QAM Lisinopril 40 mg PO QAM - Follow Up or Referral Follow Up: Ely Abdul DO [Physician] - 02/17/17 1:30 pm (before Feb 18 or after mar 11 new patient, diverticulitis) - Forms/Instructions Instructions: Diverticulitis (DC), Diverticulitis Diet (DC), Diverticulitis Diet (GEN) Exam - Constitutional Vitals: Period Temp Pulse Resp BP Sys/Graf Pulse Ox Last 24 Hr 96.4 F-98.2 F 55-75 18-20 125-160/72-96 96-98 General appearance: no acute distress, over weight - Head Head exam: Present: normocephalic, atraumatic - Eye Eye exam: Present: EOMI. Absent: scleral icterus - Respiratory Respiratory exam: Present: clear to auscultation bilaterally - Cardiovascular Cardiovascular exam: Present: regular rate and rhythm - GI/Abdominal GI/Abdominal exam: Present: normal bowel sounds, soft. Absent: tenderness - Extremities Exam Extremities exam: Absent: edema Discharge Results Labs on day of discharge: Labs from last 24 hours 02/09/17 05:46 Sodium 142 Potassium 5.0 Chloride 107 Carbon Dioxide 32 Anion Gap 8.0 BUN 13 Creatinine 1.10 GFR Calculation 82 BUN/Creatinine Ratio 11.00 Glucose 112 H Calculated Osmolality 283.1 Calcium 8.3 L DS: Provider Date of admission: 02/07/17 16:25 Primary care physician: Nonstaff Physician Attending physician on admission: Dominic Sandoval MD Consults: 02/07/17 16:28 Consult to Physician [CONS] Routine Comment: Consulting Provider: Donte Harley When should Consulting Provider be notified: In am Consult to Specialist Group: Gastroenterology Person Notified: MD aware Discharging clinician: Eugenia Bañuelos MD
[2017-02-09 11:47] VITALS: BP 145/78
== END 2017-02-09 12:52 | disposition home or self-care (01) | DRG 392 ==
LOC: N.ED 13:37 → N.EDINP 16:25 → SUATTDRO 16:25 → N.5E 17:00
PROVIDERS: ADMIT Internal Medicine; ATTEND Internal Medicine

== ENCOUNTER 2017-12-28 19:16 | Inpatient (IN) ==
[2017-12-28 20:08] LABS: Basophils # 0.1 10*3/uL (0.0-0.2); Basophils % 0.3 % (0.0-0.8); Eosinophils # 0.1 10*3/uL (0.0-0.87); Eosinophils % 0.3 % (0.00-10.9); Hematocrit 48.6 VOL% (42.0-52.0); Hemoglobin 16.8 GM/DL (14.0-18.0); Immature Granulocytes % 0.5 %; Immature Granulocytes Absolute 0.08 #; Lymphocytes # 1.4 10*3/uL (1.4-4.0); Lymphocytes % 8.2 % (21.2-54.2); Mean Corpuscular HGB Conc 34.6 GM/DL (32-36); Mean Corpuscular Hemoglobin 30 PG (27-34); Mean Corpuscular Volume 87.6 FL (87-102); Mean Platelet Volume 10.4 FL (9.6-12.0); Monocytes # 1.2 10*3/uL (0.11-0.8); Monocytes % 7.1 % (1.7-12.7); Neutrophils # 14.4 10*3/uL (1.4-7.4); Neutrophils % 83.6 % (38.7-73.9); Platelet Count 292 T/CUMM (130-400); Red Blood Count 5.55 MC/CUMM (3.8-5.5); Red Cell Distribution Width 12.8 % (9.3-17.3); White Blood Count 17.2 T/CUMM (4-12)
[2017-12-28] MEDS ORDERED: SODIUM CHLORIDE 0.9% 1,000 ML IV STA (20:16)
[2017-12-28] MEDS ORDERED: MORPHINE 4 MG/1 ML VIAL IV STA (20:17)
[2017-12-28] MEDS ORDERED: ONDANSETRON 4 MG/2 ML VIAL IV STA (20:17)
[2017-12-28] MEDS ORDERED: KETOROLAC 30 MG/1 ML VIAL IV STA (20:17)
[2017-12-28 20:43] LABS: Bilirubin,Total 0.7 MG/DL (0.2-1.0); Calcium 9.4 MG/DL (8.5-10.1); Osmolality,Calculated 274.1 MOS/KG (273-304); Potassium 4.2 MMOL/L (3.5-5.1); Total Protein 7.9 G/DL (6.4-8.3)
[2017-12-28 20:46] LABS: Apearance,Urine CLEAR (Clear); Bilirubin,Urine Negative (Negative); Blood, Urine Negative (Negative); Glucose,Urine (UA) Negative (Negative); Ketones,Urine Negative (Negative); Mucus,Urine Occasional /LPF (Occasional); Nitrite,Urine Negative (Negative); Protein,Urine Negative; RBC,Urine 1 /HPF (0-4); Squamous Epithelial Cell,Urine Occasional /HPF (0-10); Urine Color Yellow (Yellow); Urine Urobilinogen < 2.0 EU/DL (0.2-1.0); WBC,Urine <1 /HPF (0-6)
[2017-12-28 20:54] LABS: Lactic Acid 1.3 MMOL/L (0.4-2.0)
[2017-12-28] MEDS ORDERED: CEFEPIME 2,000 MG in SODIUM CHLORIDE 0.9% 100 ML IV STA (21:13)
[2017-12-28] MEDS ORDERED: CEFEPIME 2,000 MG VIAL ONE (21:16)
[2017-12-28] MEDS ORDERED: MORPHINE 10 MG/1 ML VIAL IV PRN (22:05)
[2017-12-29] MEDS: DEXTROSE 5% NACL 0.9% 1,000 ML IV SCH ×4 (04:04→21:23)
[2017-12-29 04:56] LABS: Basophils % 0.3 % (0.0-0.8); Eosinophils % 0.3 % (0.00-10.9); Hematocrit 42.7 VOL% (42.0-52.0); Hemoglobin 15.1 GM/DL (14.0-18.0); Immature Granulocytes % 0.3 %; Immature Granulocytes Absolute 0.04 #; Lymphocytes # 1.7 10*3/uL (1.4-4.0); Mean Corpuscular HGB Conc 35.4 GM/DL (32-36); Mean Corpuscular Hemoglobin 31 PG (27-34); Mean Corpuscular Volume 87.3 FL (87-102); Mean Platelet Volume 10.5 FL (9.6-12.0); Monocytes # 0.9 10*3/uL (0.11-0.8); Monocytes % 6.4 % (1.7-12.7); Neutrophils # 11.1 10*3/uL (1.4-7.4); Neutrophils % 80.7 % (38.7-73.9); Platelet Count 228 T/CUMM (130-400); Red Blood Count 4.89 MC/CUMM (3.8-5.5); Red Cell Distribution Width 13.2 % (9.3-17.3); White Blood Count 13.7 T/CUMM (4-12)
[2017-12-29] MEDS: traMADol 50 MG TABLET PO PRN ×3 (05:22→21:31)
[2017-12-29] MEDS: LEVOTHYROXINE 125 MCG TABLET PO SCH (08:21)
[2017-12-29] MEDS: CEFEPIME 2,000 MG in SYRINGE 1 EACH IV SCH ×2 (08:21→14:22)
[2017-12-29] MEDS: ASPIRIN EC 81 MG TABLET PO SCH (10:26)
[2017-12-29] MEDS: PANTOPRAZOLE 40 MG VIAL IV SCH (10:26)
[2017-12-29] MEDS: VANCOMYCIN 50 MG/ML 60 ML/BOTTLE PO SCH ×2 (12:37→17:33)
[2017-12-29] MEDS: CHOLESTYRAMINE 4 GM PACK PO SCH ×2 (13:40→21:23)
[2017-12-29] MEDS: metroNIDAZOLE INJ 250 MG in IV BAG 1 EACH IV SCH (17:32)
[2017-12-29] MEDS: ONDANSETRON 4 MG/2 ML VIAL IV PRN (17:50)
[2017-12-30] MEDS: VANCOMYCIN 50 MG/ML 60 ML/BOTTLE PO SCH ×4 (01:24→18:09)
[2017-12-30] MEDS: metroNIDAZOLE INJ 250 MG in IV BAG 1 EACH IV SCH ×2 (01:24→10:30)
[2017-12-30 05:47] LABS: Basophils # 0.1 10*3/uL (0.0-0.2); Basophils % 0.6 % (0.0-0.8); Eosinophils # 0.3 10*3/uL (0.0-0.87); Eosinophils % 3.9 % (0.00-10.9); Hematocrit 41.3 VOL% (42.0-52.0); Hemoglobin 13.8 GM/DL (14.0-18.0); Immature Granulocytes % 0.4 %; Immature Granulocytes Absolute 0.03 #; Lymphocytes # 2.1 10*3/uL (1.4-4.0); Lymphocytes % 25.4 % (21.2-54.2); Mean Corpuscular HGB Conc 33.4 GM/DL (32-36); Mean Corpuscular Hemoglobin 30 PG (27-34); Mean Corpuscular Volume 90.8 FL (87-102); Mean Platelet Volume 10.6 FL (9.6-12.0); Monocytes # 1.1 10*3/uL (0.11-0.8); Monocytes % 12.9 % (1.7-12.7); Neutrophils # 4.6 10*3/uL (1.4-7.4); Neutrophils % 56.8 % (38.7-73.9); Platelet Count 215 T/CUMM (130-400); Red Blood Count 4.55 MC/CUMM (3.8-5.5); Red Cell Distribution Width 13.1 % (9.3-17.3); White Blood Count 8.2 T/CUMM (4-12)
[2017-12-30] MEDS: DEXTROSE 5% NACL 0.9% 1,000 ML IV SCH ×3 (06:07→23:18)
[2017-12-30] MEDS: LEVOTHYROXINE 125 MCG TABLET PO SCH (06:07)
[2017-12-30 06:14] LABS: Calcium 8.1 MG/DL (8.5-10.1); Osmolality,Calculated 277.5 MOS/KG (273-304); Potassium 4.5 MMOL/L (3.5-5.1)
[2017-12-30] MEDS: ASPIRIN EC 81 MG TABLET PO SCH (08:36)
[2017-12-30] MEDS: traMADol 50 MG TABLET PO PRN (08:36)
[2017-12-30] MEDS: PANTOPRAZOLE 40 MG VIAL IV SCH (08:37)
[2017-12-30] MEDS: CHOLESTYRAMINE 4 GM PACK PO SCH (08:37)
[2017-12-30] MEDS: ONDANSETRON 4 MG/2 ML VIAL IV PRN (09:39)
[2017-12-30] MEDS ORDERED: KETOROLAC 15 MG/1 ML VIAL IV SCH (11:11)
[2017-12-30] MEDS: KETOROLAC 15 MG/1 ML VIAL IV SCH (20:34)
[2017-12-30] MEDS ORDERED: metroNIDAZOLE INJ 250 MG in IV BAG 1 EACH IV SCH (21:00)
[2017-12-31] MEDS: VANCOMYCIN 50 MG/ML 60 ML/BOTTLE PO SCH ×4 (01:26→17:54)
[2017-12-31] MEDS: KETOROLAC 15 MG/1 ML VIAL IV SCH ×2 (04:18→11:59)
[2017-12-31 05:17] LABS: Basophils % 0.5 % (0.0-0.8); Eosinophils # 0.4 10*3/uL (0.0-0.87); Eosinophils % 4.1 % (0.00-10.9); Hematocrit 39.7 VOL% (42.0-52.0); Hemoglobin 13.3 GM/DL (14.0-18.0); Immature Granulocytes % 0.6 %; Immature Granulocytes Absolute 0.05 #; Lymphocytes # 2.3 10*3/uL (1.4-4.0); Lymphocytes % 27.5 % (21.2-54.2); Mean Corpuscular HGB Conc 33.5 GM/DL (32-36); Mean Corpuscular Hemoglobin 30 PG (27-34); Mean Corpuscular Volume 90.2 FL (87-102); Mean Platelet Volume 10.1 FL (9.6-12.0); Monocytes # 0.9 10*3/uL (0.11-0.8); Monocytes % 10.4 % (1.7-12.7); Neutrophils # 4.8 10*3/uL (1.4-7.4); Neutrophils % 56.9 % (38.7-73.9); Platelet Count 229 T/CUMM (130-400); Red Cell Distribution Width 12.6 % (9.3-17.3); White Blood Count 8.5 T/CUMM (4-12)
[2017-12-31 05:47] LABS: Calcium 7.8 MG/DL (8.5-10.1); Osmolality,Calculated 280.4 MOS/KG (273-304); Potassium 4.3 MMOL/L (3.5-5.1)
[2017-12-31] MEDS: LEVOTHYROXINE 125 MCG TABLET PO SCH (06:50)
[2017-12-31] MEDS: DEXTROSE 5% NACL 0.9% 1,000 ML IV SCH ×2 (09:06→14:40)
[2017-12-31] MEDS: PANTOPRAZOLE 40 MG VIAL IV SCH (09:07)
[2017-12-31] MEDS: ASPIRIN EC 81 MG TABLET PO SCH (09:07)
[2017-12-31] MEDS: CHOLESTYRAMINE 4 GM PACK PO SCH (12:00)
[2017-12-31] MEDS ORDERED: ONDANSETRON ODT 4 MG TABLET PO PRN (16:00)
[2017-12-31] MEDS: KETOROLAC 15 MG/1 ML VIAL IM SCH ×2 (16:04→23:41)
[2018-01-01] MEDS: LISINOPRIL 20 MG TABLET PO SCH ×2 (00:10→08:54)
[2018-01-01] MEDS: VANCOMYCIN 50 MG/ML 60 ML/BOTTLE PO SCH ×5 (00:10→23:34)
[2018-01-01] MEDS: LEVOTHYROXINE 125 MCG TABLET PO SCH (05:37)
[2018-01-01] MEDS: traMADol 50 MG TABLET PO PRN (06:40)
[2018-01-01] MEDS: KETOROLAC 15 MG/1 ML VIAL IM SCH ×3 (07:56→23:34)
[2018-01-01] MEDS: ASPIRIN EC 81 MG TABLET PO SCH (08:53)
[2018-01-01] MEDS: PANTOPRAZOLE 40 MG TABLET PO SCH (08:53)
[2018-01-01] MEDS: CHOLESTYRAMINE 4 GM PACK PO SCH (08:54)
[2018-01-01] MEDS ORDERED: LORATADINE 10 MG TABLET PO PRN (11:00)
[2018-01-01] MEDS: LORATADINE 10 MG TABLET PO PRN (11:35)
[2018-01-01] MEDS: PSEUDOEPHEDRINE 30 MG TABLET PO PRN ×2 (11:36→21:13)
[2018-01-01] MEDS ORDERED: LISINOPRIL 20 MG TABLET PO SCH (20:12)
[2018-01-01] MEDS: ZALEPLON 5 MG CAPSULE PO PRN (21:13)
[2018-01-02 05:05] LABS: Basophils # 0.1 10*3/uL (0.0-0.2); Basophils % 0.6 % (0.0-0.8); Eosinophils # 0.3 10*3/uL (0.0-0.87); Eosinophils % 3.6 % (0.00-10.9); Hematocrit 40.3 VOL% (42.0-52.0); Hemoglobin 14.1 GM/DL (14.0-18.0); Immature Granulocytes % 0.7 %; Immature Granulocytes Absolute 0.06 #; Lymphocytes # 2.3 10*3/uL (1.4-4.0); Lymphocytes % 25.6 % (21.2-54.2); Mean Corpuscular Hemoglobin 30 PG (27-34); Mean Corpuscular Volume 85.9 FL (87-102); Mean Platelet Volume 10.5 FL (9.6-12.0); Monocytes # 1.1 10*3/uL (0.11-0.8); Monocytes % 12.5 % (1.7-12.7); Neutrophils # 5.1 10*3/uL (1.4-7.4); Platelet Count 257 T/CUMM (130-400); Red Blood Count 4.69 MC/CUMM (3.8-5.5); Red Cell Distribution Width 12.6 % (9.3-17.3)
[2018-01-02 05:47] LABS: Alanine Aminotransferase 37 U/L (16-61); Albumin 2.7 G/DL (3.4-5.0); Alkaline Phosphatase 50 U/L (45-117); Aspartate Amino Transferase 18 U/L (0-37); Bilirubin,Total < 0.39 MG/DL (0.2-1.0); Blood Urea Nitrogen 16 MG/DL (7-18); Calcium 8.6 MG/DL (8.5-10.1); Glucose 102 MG/DL (74-106); Osmolality,Calculated 281.3 MOS/KG (273-304); Potassium 4.3 MMOL/L (3.5-5.1); Sodium 141 MMOL/L (136-145); Total Protein 6.5 G/DL (6.4-8.3)
[2018-01-02] MEDS: LEVOTHYROXINE 125 MCG TABLET PO SCH (06:23)
[2018-01-02] MEDS: VANCOMYCIN 50 MG/ML 60 ML/BOTTLE PO SCH ×3 (06:23→17:44)
[2018-01-02] MEDS: KETOROLAC 15 MG/1 ML VIAL IM SCH ×4 (08:33→21:49)
[2018-01-02] MEDS: CHOLESTYRAMINE 4 GM PACK PO SCH (08:34)
[2018-01-02] MEDS: ASPIRIN EC 81 MG TABLET PO SCH (08:34)
[2018-01-02] MEDS: LISINOPRIL 20 MG TABLET PO SCH (08:34)
[2018-01-02] MEDS: PANTOPRAZOLE 40 MG TABLET PO SCH (08:34)
[2018-01-02 09:44] LABS: Apearance,Urine CLEAR (Clear); Bilirubin,Urine Negative (Negative); Blood, Urine Negative (Negative); Glucose,Urine (UA) Negative (Negative); Ketones,Urine Negative (Negative); Nitrite,Urine Negative (Negative); Protein,Urine Negative; RBC,Urine <1 /HPF (0-4); Urine Color Yellow (Yellow); Urine Specific Gravity 1.013 (1.001-1.035); Urine Urobilinogen < 2.0 EU/DL (0.2-1.0)
[2018-01-02] MEDS: LORATADINE 10 MG TABLET PO PRN (11:36)
[2018-01-02] MEDS: PSEUDOEPHEDRINE 30 MG TABLET PO PRN ×2 (11:36→21:49)
[2018-01-02] MEDS: ZALEPLON 5 MG CAPSULE PO PRN (21:49)
[2018-01-03] MEDS: KETOROLAC 15 MG/1 ML VIAL IM SCH ×3 (00:21→17:12)
[2018-01-03] MEDS: VANCOMYCIN 50 MG/ML 60 ML/BOTTLE PO SCH ×4 (00:22→17:12)
[2018-01-03 05:33] LABS: Basophils # 0.1 10*3/uL (0.0-0.2); Basophils % 0.5 % (0.0-0.8); Eosinophils # 0.4 10*3/uL (0.0-0.87); Hematocrit 40.8 VOL% (42.0-52.0); Hemoglobin 14.1 GM/DL (14.0-18.0); Immature Granulocytes % 0.8 %; Lymphocytes # 2.8 10*3/uL (1.4-4.0); Lymphocytes % 23.4 % (21.2-54.2); Mean Corpuscular HGB Conc 34.6 GM/DL (32-36); Mean Corpuscular Hemoglobin 30 PG (27-34); Mean Corpuscular Volume 87.9 FL (87-102); Mean Platelet Volume 10.3 FL (9.6-12.0); Monocytes # 1.2 10*3/uL (0.11-0.8); Monocytes % 9.8 % (1.7-12.7); Neutrophils # 7.4 10*3/uL (1.4-7.4); Neutrophils % 62.5 % (38.7-73.9); Platelet Count 271 T/CUMM (130-400); Red Blood Count 4.64 MC/CUMM (3.8-5.5); Red Cell Distribution Width 12.3 % (9.3-17.3); White Blood Count 11.8 T/CUMM (4-12)
[2018-01-03 05:54] LABS: Albumin 3.1 G/DL (3.4-5.0); Bilirubin,Total 0.4 MG/DL (0.2-1.0); Calcium 8.6 MG/DL (8.5-10.1); Hypochromasia 1+; Osmolality,Calculated 280.4 MOS/KG (273-304); Platelet Estimate Adequate; Potassium 4.3 MMOL/L (3.5-5.1); Total Protein 6.5 G/DL (6.4-8.3)
[2018-01-03] MEDS: LEVOTHYROXINE 125 MCG TABLET PO SCH (06:20)
[2018-01-03] MEDS: CHOLESTYRAMINE 4 GM PACK PO SCH (09:02)
[2018-01-03] MEDS: PANTOPRAZOLE 40 MG TABLET PO SCH (09:03)
[2018-01-03] MEDS: LISINOPRIL 20 MG TABLET PO SCH (09:03)
[2018-01-03] MEDS: ASPIRIN EC 81 MG TABLET PO SCH (09:03)
[2018-01-03 16:18] VITALS: BP 168/94
== END 2018-01-03 19:25 | disposition home or self-care (01) | DRG 372 ==
LOC: N.ED 19:16 → N.EDINP 21:58 → N.TELES 22:49 → N.TELEN 12-29 14:02
PROVIDERS: ADMIT Internal Medicine; ATTEND Internal Medicine